=== PATIENT | male | born 1955 | race Caucasian/White ===

== ENCOUNTER 2020-11-21 11:20 | Emergency (ER) | payer OTHER ==
[~2020-11-21 11:20] MED LIST: BACTRIM DS TAB1 EACH PO; FLEXERIL10 MG PO; MEDROL 4MG DOSEP4 MG PO; PERCOCET 5-3251 EACH PO
[2020-11-21 12:15] LABS: BASOPHIL 0.3 % (0-2); EOSINOPHIL 0.3 % (0-7); HCT 39.9 % (42.0-52.0); HGB 14.1 g/dl (13.2-18.0); MCHC 35.3 g/dL (32.0-36.0); MCV 90.5 fL (78.0-100.0); MONOCYTE 6.2 % (0-12); NEUTROPHIL 83.4 % (41-80); NRBC 0; PLT 234 K/uL (150-400); RBC 4.41 M/uL (4.70-6.00); RDW 12.6 % (11.5-14.0); WBC 14.6 K/uL (4.0-10.5)
[2020-11-21 12:29] LABS: BUN/CREAT RATIO (CALC) 13.8 RATIO; CREATININE 0.8 mg/dL (0.67-1.17); POTASSIUM 3.8 mmol/L (3.5-5.1)
[2020-11-21 14:02] LABS: BILIRUBIN NEGATIVE (NEGATIVE); BLOOD NEGATIVE Ery/uL (NEGATIVE); CLARITY CLEAR (CLEAR); COLOR YELLOW (YELLOW); GLUCOSE (U) NORMAL (NORMAL); LEUKOCYTES NEGATIVE Leu/uL (NEGATIVE); NITRITE NEGATIVE (NEGATIVE); PROTEIN NEGATIVE (NEGATIVE); SPECIFIC GRAVITY 1.025 (1.001-1.030); UROBILINOGEN 0.2 mg/dL (0.2-1.0); pH 5.5 (5.0-9.0)
== END 2020-11-21 18:45 | disposition other institution (70) ==
LOC: FER 11:20
PROVIDERS: Emergency Medicine
DX: S32.431A Displaced fracture of anterior column [iliopubic] of right acetabulum, initial encounter for closed fracture (principal); S32.441A Displaced fracture of posterior column [ilioischial] of right acetabulum, initial encounter for closed fracture; S62.111A Displaced fracture of triquetrum [cuneiform] bone, right wrist, initial encounter for closed fracture; M25.521 Pain in right elbow; J44.9 Chronic obstructive pulmonary disease, unspecified; W17.89XA Other fall from one level to another, initial encounter; Z20.822 Contact with and (suspected) exposure to COVID-19
CPT/HCPCS: 36415; 71045; 72131; 72192; 73080; 73110; 80048; 81003; 85025; 96374; 96375; 96376; J1170; J2405; J7030; U0002